=== PATIENT | male | born 2000 | race Caucasian/White ===

== ENCOUNTER → 2021-02-27 17:25 | Outpatient (CLI) | payer BC, SELFPAY ==
--- NOTE | ~2021-02-27 | XR_ITS ---
XR lumbar spine 2-3V 02/27/2021 18:58 Indication: Back pain Procedure: 3 views lumbar spine Comparison: 02/10/2015 Findings: There are 6 lumbar type vertebra. There is mild disc narrowing at the 3 lowest disc levels. No acute fracture or traumatic malalignment. No evidence for spondylolisthesis. There is mild lower lumbar facet hypertrophy. Sacral foramen are symmetric. Impression: 1: Mild lumbar spondylosis. Reviewed, dictated and finalized at location A. S DRIVER Impression: 1: Mild lumbar spondylosis.
--- NOTE | ~2021-02-27 | XR_ITS ---
XR cervical spine 4-5V INDICATION: Neck pain TECHNIQUE: 4 views of the cervical spine. FINDINGS: No prior studies for comparison. The cervical spine is visualized to the cervicothoracic junction. There is no prevertebral soft tiss ue swelling, listhesis, or loss of vertebral body height. Intervertebral disc spaces are normal. Th e osseous central canal is patent. No displaced cervical spine fractures are identified. IMPRESSION: 1. No acute osseous abnormality of the cervical spine. Reviewed, dictated and finalized at location A. AIR CONDITIONING MECH[employer]IC
== END ==
PROVIDERS: PCP Physician Assistant; Visit Provider Physician Assistant
DX: M47.816 Spondylosis without myelopathy or radiculopathy, lumbar region (principal); M54.2 Cervicalgia
CPT/HCPCS: 72050; 72100

== ENCOUNTER 2022-10-06 12:23 | Emergency (ER) | payer BC, SELFPAY ==
[2022-10-06 12:45] VITALS: BP 134/75; PULSE 123; RESP 16; TEMP 36.3; O2SAT 100
--- NOTE | 2022-10-06 13:25 | ED.EYEPROB ---
HPI - Eye Problem General Chief complaint: Eye Problems Stated complaint: right eye fb Time Seen by Provider: 10/06/22 12:48 History of Present Illness HPI Narrative: 21-year-old male presented to the emergency department for evaluation of a foreign body in the right eye. Patient states he was grinding with metal even though he was wearing eye protection he suspects he got something in his eye. Patient states he has had some tearing and a foreign body sensation of the right eye but denies any change in vision. Patient does not wear contacts. Related Data Allergies Allergy/AdvReac Type Severity Reaction Status Date / Time No Known Drug Allergies Allergy Unknown Diarrhea Verified 10/06/22 12:53 Review of Systems Review of Systems: All systems reviewed & are unremarkable except as noted in HPI and below PMFSH Past Medical History Medical History (Updated 10/06/22 @ 13:32 by Jae Lopez MD) Asthma Attention Deficit Hyperactivity Disorder (ADHD) Surgical History Surgical History (Updated 08/20/22 @ 10:36 by DALILA Vance) History of hernia repair 2010 Family History Family History (Updated 08/20/22 @ 10:34 by Gracie Ricketts MA) Father No problems noted. Mother No problems noted. Social History Social History (Updated 08/20/22 @ 10:36 by Gracie Ricketts MA) Smoking status: Never smoker Alcohol intake: current Drinks per week: 4 Substance use: never Substance use type: does not use Lack of Transportation: No Lack of Food: Never True Current Housing: I Have Housing Concerned About Future Housing: No Difficulty Paying Gas/Electric Bills: No Difficulty Paying for Meds: No Currently Unemployed: No Education: Trade/Vocational Certificate Difficulty w/ Childcare or Family Care: No Living arrangements: with family Occupation/Education: occupation Gender identity (if verbalized by the patient): Male Sexual Orientation (if Verbalized by the Patient): Straight or Heterosexual Exam Narrative: APPEARANCE: Well appearing, no pain, no distress, well-nourished. HEAD: normocephalic, atraumatic. EYES: Foreign body at the 7:00 area of the right cornea. Metallic foreign body with rust ring NOSE: Normal no drainage Course Course Emergency Course: 21-year-old male presented ED for evaluation of a metallic foreign body in the right eye. Metallic foreign body was removed. Patient does have a residual rust ring. Patient was started on erythromycin ointment in the ED. Patient was also encouraged of close follow-up with ophthalmology and will be provided follow-up with [facility]. Patient was updated on the treatment plan and importance of follow-up. All questions and concerns were addressed. Patient declined a tetanus update. Vital Signs Vital signs: Vital Signs Temperature 97.4 F L 10/06/22 12:45 Pulse Rate 123 H 10/06/22 12:45 Respiratory Rate 16 10/06/22 12:45 Blood Pressure 134/75 10/06/22 12:45 Pulse Oximetry 100 10/06/22 12:45 Oxygen Delivery Room Air 10/06/22 12:45 Temperature 97.4 F L 10/06/22 12:45 Pulse Rate 123 H 10/06/22 12:45 Respiratory Rate 16 10/06/22 12:45 Blood Pressure 134/75 10/06/22 12:45 Pulse Oximetry 100 10/06/22 12:45 Oxygen Delivery Room Air 10/06/22 12:45 Procedures FB Removal Eye Foreign Body #1: Time Out performed: Yes Location: eye (R) Topical anesthetic used: tetracaine Foreign body: metal Evidence of corneal penetration: Yes Technique: cotton tip swab and needle Procedure performed under: direct visualization with magnification and slit-lamp Post-procedure medication: ophthalmic antibiotic and topical anesthetic Patient tolerated procedure: well Complications: residual rust ring and corneal penetration Foreign Body Removal Narrative: Metallic foreign body was displaced initially with an 18-gauge n
[2022-10-06] MEDS: ERYTHROMYCIN OPHTH OINTMENT 1 GM TUBE 1 APPLIC RIGHT EYE (13:38)
== END 2022-10-06 13:42 | disposition home or self-care (01) ==
PROVIDERS: Emergency Provider Emergency Medicine; PCP Family Medicine
DX: T15.01XA Foreign body in cornea, right eye, initial encounter (principal); W26.9XXA Contact with unspecified sharp object(s), initial encounter
CPT/HCPCS: 65220; 99283; A9270

== ENCOUNTER 2023-07-09 15:37 | Outpatient (CLI) | payer BC, SELFPAY ==
--- NOTE | ~2023-07-09 | XR_ITS ---
Lumbosacral Spine: AP, oblique, and lateral views Clinical History: Pain Findings: The normal lordotic curve is maintained. The vertebral bodies and posterior elements are i ntact. There is mild degenerative disc narrowing at L5-S1. There is mild facet arthropathy at L5-S1 T he sacroiliac joints are normally outlined. Impression: Mild degenerative change, as above. Reviewed, dictated and finalized at location . Impression: Mild degenerative change, as above.
--- NOTE | ~2023-07-09 | XR_ITS ---
Thoracic spine: Clinical Indication: Back pain AP and lateral views were performed. No fracture is seen. There is normal alignment of the vertebrae. The intervertebral disc spaces appe ar normal. Paravertebral soft tissues appear normal. Impression: No significant abnormalities noted. Reviewed, dictated and finalized at [facility]. Impression: No significant abnormalities noted.
== END 2023-07-09 15:38 | disposition home or self-care (01) ==
PROVIDERS: PCP Family Medicine; Visit Provider Physician Assistant
DX: M54.6 Pain in thoracic spine (principal); M54.50 Low back pain, unspecified
CPT/HCPCS: 72072; 72110

== ENCOUNTER 2024-07-02 14:28 | Outpatient (CLI) | payer BC, SELFPAY ==
--- NOTE | 2024-07-02 | ECG_ITS ---
Test Date: 2024-07-02 16:08:52 Measurements Intervals Brutus Rate: 72 P: 86 ME: 141 QRS: 87 QRSD: 97 T: 73 QT: 355 QTc: 391 Interpretive Statements SINUS ARRHYTHMIA RIGHT VENTRICULAR CONDUCTION DELAY Electronically Signed On 07-04-2024 13:51:35 CDT by Mauricio Acosta D.O
--- NOTE | 2024-07-02 | ECHO_ITS ---
Patient Info Name: Joshua Jauregui Age: 23 years : 2000 Gender: Male Ht: 71 in Wt: 155 lbs BSA: 1.87 m2 HR: 82 bpm BP: 132 / 79 mmHg Heart Rhythm: Sinus Rhythm Technical Quality: Fair Exam Date: 07/02/2024 3:26 PM Exam Location: Echo Lab Patient Status: Outpatient Admit Date: 07/02/2024 Staff Ordering Physician: ChandrikaSally PA-C Senior Underwriter: Peyton Castellanos RDCS Attending Provider: ChandrikaSally PA-C Exam Type: CA echo doppler color flow Study Info Indications - CHEST PAIN Complete two-dimensional, color flow and Doppler transthoracic echocardiogram is performed. Summary 1. Complete two-dimensional, color flow and Doppler transthoracic echocardiogram is performed. 2. Left ventricular chamber dimension is normal. 3. Left ventricular systolic function is normal, estimated at 60-65%. 4. The left ventricular diastolic function is normal. 5. E/e' 6 is not elevated. 6. There is trace mitral valve regurgitation. 7. No pulmonary hypertension, estimated pulmonary arterial systolic pressure is 19 mmHg. Left Ventricle E/e' 6 is not elevated. Left ventricular chamber dimension is normal. Left ventricular systolic function is normal, estimated at 60-65%. The left ventricular diastolic function is normal. Right Ventricle Right ventricular chamber dimension is normal. Right ventricular systolic function is normal. Left Atria Left atrial chamber dimension is normal. Right Atria Right atrial chamber dimension is normal. Aortic Valve The aortic valve is trileaflet. There is no aortic valve stenosis. There is no aortic valve regurgitation. Pulmonic Valve There is no pulmonic regurgitation. Mitral Valve There is no mitral valve stenosis. There is trace mitral valve regurgitation. Tricuspid Valve There is no tricuspid valve regurgitation. No pulmonary hypertension, estimated pulmonary arterial systolic pressure is 19 mmHg. Pericardium/Pleural There is no pericardial effusion. Inferior Vena Cava Normal inferior vena cava with >50% collapse upon inspiration consistent with normal right atrial pressure, 5 mmHg. Aorta The aortic root size at the sinus of Valsalva is normal. Left Ventricular Outflow Tract Name Value Normal LVOT 2D LVOT Diameter 2.0 cm LVOT Doppler LVOT Peak Gradient 3 mmHg LVOT Mean Gradient 2 mmHg LVOT VTI 19 cm LVOT VTI/AV VTI Ratio 1.0 LVOT Stroke Volume 61 ml LVOT CO 2.9 l/min LVOT CI 1.5 l/min/m2 Pulmonic Valve Name Value Normal RVOT Doppler RVOT Peak Gradient 2 mmHg PV Doppler PV Peak Gradient 4 mmHg Mitral Valve Name Value Normal MV Doppler MV Decel Hooker 292 cm/s2 MV PHT 80 ms MV Area (PHT) 2.8 cm2 4.0-5.0 MV Diastolic Function MV E Peak Velocity 80 cm/s MV A Peak Velocity 47 cm/s MV E/A 1.7 MV Decel Time 275 ms MV Annular TDI MV E/e' (Septal) 8.1 <=8.0 MV E/e' (Lateral) 5.2 <=8.0 MV E/e' (Average) 6.7 Tricuspid Valve Name Value Normal TV Regurgitation Doppler TR Peak Velocity 188 cm/s TR Peak Gradient 8 mmHg Estimated PAP/RSVP RA Pressure 5 mmHg <=5 PA Systolic Pressure 19 mmHg <36 RV Systolic Pressure 19 mmHg <36 Aortic Valve Name Value Normal AV Doppler AV Peak Velocity 95 cm/s AV Peak Gradient 4 mmHg AV Mean Gradient 2 mmHg AV VTI 19 cm AV Area (Cont Eq VTI) 3.2 cm2 >=3.0 AV Area (Cont Eq Ozzy) 2.9 cm2 AV Regurgitation 2D LVOT Area 3.2 cm2 Ventricles Name Value Normal LV Dimensions 2D/MM IVS Diastolic Thickness (2D) 0.9 cm 0.6-1.0 LVID Diastole (2D) 4.4 cm 4.2-5.8 LVIW Diastolic Thickness (2D) 0.9 cm 0.6-1.0 LVID Systole (2D) 2.8 cm 2.5-4.0 LVOT Diameter 2.0 cm LV Mass (2D Cubed) 124.28 g 88.00-224.00 LV Mass Index (2D Cubed) 66 g/m2 49-115 Relative Wall Thickness (2D) 0.41 LV Fractional Shortening/Ejection Fraction 2D/MM LV Fractional Shortening (2D) 30 % 25-43 LV EF (2D Teicholz) 58 % 52-72 LV Diastolic Volume (4C MOD) 133 ml LV EF (4C MOD) 67 % LV Diastolic Volume (2C MOD) 151 ml LV EF (2C MOD) 69 % LV Diastolic Volume (BP MOD) 148 ml 62-150 LV Diastolic Volume Index (BP MOD) 79 ml/m2 34-74 LV Systolic Volume (BP MOD) 46 ml 21-61 LV Systolic Volume Index (BP MOD) 24 ml/m2 11-31 LV EF (BP MOD) 69 % 52-72 LV Diastolic Length (4C) 9.6 cm LV Systolic Length (4C) 7.6 cm LV Stroke Volume (4C MOD) 89 ml Atria Name Value Normal LA Dimensions LA Volume (4C A-L) 45 ml LA Volume (BP A-L) 33 ml RA Dimensions RA Area (4C) 13.6 cm2 <=18.0 Report Signatures
--- NOTE | ~2024-07-02 | XR_ITS ---
CHEST RADIOGRAPH, PA AND LATERAL CLINICAL HISTORY: Atypical chest pain . COMPARISON: 01/15/2013. TECHNIQUE: PA and lateral views of the chest. FINDINGS The cardiomediastinal silhouette is unremarkable. The lungs are clear. Visualized osseous structures and soft tissues are unremarkable. IMPRESSION: No focal infiltrate or effusion. Reviewed, dictated and finalized at location A.
--- OUTSIDE RECORDS SUMMARY | 2024-07-02 14:37 | XMS_ITS | Patient Health Summary ---
Author Organization [facility] [employer] Address [address] [place] [address] Care Team Providers Care Borderer Name Role Phone Unavailable Primary Care Provider Unavailabl e Note from [facility] [employer] [facility],non-owned Affiliates and Associated Physician Practices is amultiple site organization consisting of ambulatory clinics and hospital sitesin [place] and [place]. This disclosure is being madepursuant to the Care Everywhere program and may not contain all information available regarding this patient. Last updated 18.[facility] [employer] Allergies No known active allergies Medications * Be aware that medications may not be up to date on this document. Alwaysverify current medications with the patient. * albuterol HFA (PROVENTIL;VENTOLIN;PROAIR) 108 (90 BASE) MCG/ACT inhaler Inhale 2 Puffs by mouth every 6 hours as needed. * Budesonide (PULMICORT IN) Inhale 2 Puffs by mouth once daily. * ibuprofen (MOTRIN) 100 MG chew tablet(Started 07/19/2011) Take 1 Tab by mouth every 6 hours as needed for Pain. Social History Tobacco Use Types Packs/Day Years Used Date Smoking Tobacco: Never Sex and Gender Information Value Date Recorded Sex Assigned at Not on file Gender Identity Not on file Sexual Orientation Not on file Last Filed Vital Signs Vital Sign Reading Time Taken Comments Blood Pressure 124/70 06/17/2013 1:29 PM [employer] Pulse 114 06/17/2013 1:29 PM [employer] Temperature 36.6 C (97.8 F) 06/17/2013 1:29 PM [employer] Respiratory Rate 20 06/17/2013 1:29 PM [employer] Oxygen Saturation 99% 06/17/2013 1:29 PM [employer] Inhaled Oxygen Concentration - - Weight 44.8 kg (98 lb 12.3 oz) 06/17/2013 1:29 P M [employer] Height 156.8 cm (5' 1.73 ) 06/17/2013 1:29 PM CS T Body Mass Index 18.22 06/17/2013 1:29 PM [employer] Procedures * LAB RESULTS ORDER(Performed 06/19/2013) * FACTOR XI ASSAY(Performed 06/17/2013) Performed for Bruising * T4 FREE(Performed 06/17/2013) Performed for Malaise and fatigue * TSH(Performed 06/17/2013) Performed for Malaise and fatigue * MIKE-FREGOSO VIRUS ANTIBODY PANEL(Performed 06/17/2013) Performed for Malaise and fatigue * VON WILLEBRAND ANTIGEN(Performed 06/17/2013) Performed for Bruising * RISTOCETIN COFACTOR (VWF)(Performed 06/17/2013) Performed for Bruising * FACTOR VIII ASSAY(Performed 06/17/2013) Performed for Bruising * PT PTT PANEL(Performed 06/17/2013) Performed for Bruising * CBC W AUTO DIFFERENTIAL(Performed 06/17/2013) Performed for Bruising * PATHOLOGY/CYTOLOGY REPORT ORDER(Performed 07/23/2011) * GROSS + MICRO EXAM(Performed 07/19/2011) Results * LAB RESULTS ORDER (06/19/2013 6:37 AM [employer]) Narrative 06/19/2013 6:37 AM [employer] Ordered by an unspecified provider. Transcriptions Document, Scanned - 06/19/2013 6:37 AM CST Scanned Document LAB - THERAPEUTIC DR FRANCIS MONITORING ORDERABLES * MIKE-BAR VIRUS PANEL (06/17/2013 2:31 PM [employer]) Mike-Fregoso Virus Antibody IgG Early Antigen <5.0 0.0 - 10.9 U/mL 06/18/2013 9:03 PM [employer]ER [facility] [employer] Comment: INTERPRETIVE INFORMATION: Mike-Fregoso Virus Antibody to Early D Antigen (EA-D), IgG 8.9 U/mL or less.......Not Detected 9.0-10.9 U/mL..........Indeterminate - Repeat testing in 10-14 days may be helpful. 11.0 U/mL or greater...Detected Interpretive information regarding serologic features of EBV-associated diseases is available at [email or web address]. Mike-Fregoso Virus Antibody IgG Viral Capsid Antigen <10.0 0.0 - 21.9 U/mL 06/18/2013 9:03 PM [employer] [facility] Comment: INTERPRETIVE INFORMATION: Mike-Fregoso Virus Antibody to Viral Capsid Antigen, IgG 17.9 U/mL or less......Not Detected 18.0-21.9 U/mL.........Indeterminate - Repeat testing in 10-14 days may be helpful. 22.0 U/mL or greater...Detected Interpretive information regarding serologic features of EBV-associated diseases is available at [email or web address]. Mike-Fregoso Virus Antibody IgM Viral Capsid Antigen <10.0 0.0 - 43.9 U/mL 06/18/2013 9:03 PM [employer] [facility] [employer] Comment: INTERPRETIVE INFORMATION: Mike-Fregoso Virus Antibody to Viral Capsid Antigen, IgM 35.9 U/mL or less......Not Detected 36.0-43.9 U/mL.........Indeterminate - Repeat testing in 10-14 days may be helpful. 44.0 U/mL or greater...Detected Interpretive information regarding serologic features of EBV-associated diseases is available at [email or web address]. Mike-Fregoso Virus Antibody IgG Nuclear Antigen <3.0 0.0 - 21.9 U/mL 06/18/2013 9:03 PM [employer] [facility] Comment: INTERPRETIVE INFORMATION: Mike-Fregoso Virus Antibody to Nuclear Antigen, IgG 17.9 U/mL or less......Not Detected 18.0-21.9 U/mL.........Indeterminate - Repeat testing in 10-14 days may be helpful. 22.0 U/mL or greater...Detected Interpretive information regarding serologic features of EBV-associated diseases is available at [email or web address]. Blood specimen (specimen) BLOOD SPECIMEN / Unknown Lab Venipuncture / Unknown 06/17/2013 2:31 PM [employer] 06/17/2013 3:01 PM [employer] Peter Torres MD LAB - CHEMISTRY ORDE RABLES Performing Organization Address [facility] de Phone Number [facility] [address] [place] [address] * FACTOR XI ASSAY (06/17/2013 2:31 PM [employer]ER) Factor XI Activity 86 68 - 138 % 06/21/2013 5:59 PM [employer] [facility] [employer] Comment: INTERPRETIVE INFORMATION: Factor XI, Activity Access complete set of age- and/or gender-specific reference intervals for this test in the [facility] Test Directory ([employer]). Blood specimen (specimen) BLOOD SPECIMEN / Unknown Lab Venipuncture / Unknown 06/17/2013 2:31 PM [employer] 06/17/2013 3:01 PM [employer] Peter Torres MD LAB - COAGULATION OR DERABLES Performing Organization Address [facility] de Phone Number [facility] [address] [place] [address] * FACTOR VIII VW ANTIGEN (06/17/2013 2:31 PM [employer] TE[employer]ER) Pathologist [facility] [place] von Willebrand Factor Antigen 152 60 - 189 % 06/21/2013 10:15 AM [employer] TE[employer]ER [employer] Comment: REFERENCE INTERVAL: von Willebrand Factor, Antigen Access complete set of age- and/or gender-specific reference intervals for this test in the [facility] ([employer]). Blood specimen (specimen) BLOOD SPECIMEN / Unknown Lab Venipuncture / Unknown 06/17/2013 2:31 PM [employer]ER 06/17/2013 3:01 PM [employer] Peter Torres MD LAB - COAGULATION OR DERABLES Performing Organization Address [facility] de Phone Number [address] [address] * FACTOR VIII RISTOCETIN COFACTOR (06/17/2013 2:31 PM [employer] TE[employer]ER) Pathologist [facility] [place] von Willebrand Factor RCF 117 50 - 184 % 06/21/2013 10:15 AM [employer] TE[employer] Comment: REFERENCE INTERVAL: von Willebrand Factor, Activity (RCF) Access complete set of age- and/or gender-specific reference intervals for this test in the [facility] ([employer]). Blood specimen (specimen) BLOOD SPECIMEN / Unknown Lab Venipuncture / Unknown 06/17/2013 2:31 PM [employer] 06/17/2013 6:05 PM [employer]ER Peter Torres MD LAB - COAGULATION OR DERABLES [employer] [address] [place] [address] * PT PTT PANEL (06/17/2013 2:31 PM [employer] TE[employer]ER) Pathologist [facility] PT 13.3 12.2 - 14.5 sec 06/17/2013 4:02 PM [facility] INR 1.02 0.8 - 1.2 06/17/2013 4:02 PM [facility] PTT 31.5 23.0 - 36.0 sec 06/17/2013 4:02 PM [employer]ER [facility] Blood BLOOD SPECIMEN / Unknown Lab Venipuncture / Unknown 06/17/2013 2:31 PM [employer]ER 06/17/2013 3:02 PM [employer] Peter Torres MD LAB - COAGULATION OR DERABLES Performing Organization Address City/[facility]/ZIP Co de Phone Number [facility] [address] [place] [address] * FACTOR VIII ASSAY (06/17/2013 2:31 PM [employer]ER) [facility] Factor VIII Activity 125 60 - 140 % NHP 06/22/2013 12:23 PM [employer] TE[employer]ER [facility] Blood BLOOD SPECIMEN / Unknown Lab Venipuncture / Unknown 06/17/2013 2:31 PM [employer]ER 06/17/2013 3:02 PM [employer] Peter Torres MD LAB - COAGULATION OR DERABLES Performing Organization Address City/[facility] Co de Phone Number [facility] [address] [place] [address] * (ABNORMAL) CBC W AUTO DIFFERENTIAL (06/17/2013 2:31 PM [employer] TE[employer]ER) [facility] WBC 5.4 4.5 - 14.5 x10^9/L 06/17/2013 3:14 PM [employer]ER [facility] RBC 5.05 4.00 - 5.20 x10^12/L 06/17/2013 3:14 PM [facility] Hemoglobin 13.9 11.5 - 15.5 gm/dL 06/17/2013 3:14 PM [facility] Hematocrit 39.9 35.0 - 45.0 % 06/17/2013 3:14 PM [facility] MCV 79.0 77.0 - 95.0 fl 06/17/2013 3:14 PM [facility] MCH 27.5 25.0 - 33.0 pg 06/17/2013 3:14 PM [facility] MCHC 34.8 gm/dL 06/17/2013 3:14 PM [facility] Platelet Count 330 100 - 400 x10^9/L 06/17/2013 3:14 PM [facility] RDW-CV 12.0 11.5 - 14.0 % 06/17/2013 3:14 PM [facility] MPV 9.7(H) 6.0 - 9.5 fl 06/17/2013 3:14 PM [facility] Neutrophils % 59.4 24.0 - 66.0 % 06/17/2013 3:14 PM [facility] Lymphocytes % 27.0 22.0 - 61.0 % 06/17/2013 3:14 PM [facility] Monocytes % 8.2 3.0 - 15.0 % 06/17/2013 3:14 PM [facility] Eosinophils % 4.8 0.0 - 10.0 % 06/17/2013 3:14 PM [facility] Basophils % 0.6 % 06/17/2013 3:14 PM [facility] Neutrophil Absolute 3.20 x10^9/L 06/17/2013 3:14 PM [facility] Lymphocytes Absolute 1.45 x10^9/L 06/17/2013 3:14 PM [facility] Monocytes Absolute 0.44 x10^9/L 06/17/2013 3:14 PM [facility] Eosinophils Absolute 0.26 x10^9/L 06/17/2013 3:14 PM [facility] Basophils Absolute 0.03 x10^9/L 06/17/2013 3:14 PM [facility] Blood BLOOD SPECIMEN / Unknown Lab Venipuncture / Unknown 06/17/2013 2:31 PM [employer] 06/17/2013 3:02 PM [employer] Peter Torres MD LAB - HEMATOLOGY ALYCE ROMERO Performing Organization Address [facility] Co de Phone Number [facility] [address] [place] [address] * TSH (06/17/2013 2:31 PM [employer] TE[employer]ER) Pathologist [facility] TSH 0.98 0.35 - 4.95 uIU/mL 06/17/2013 4:25 PM [employer] TE[employer]ER [facility] Blood BLOOD SPECIMEN / Unknown Lab Venipuncture / Unknown 06/17/2013 2:31 PM [employer]ER 06/17/2013 3:02 PM [employer] Peter Torres MD LAB - CHEMISTRY THOM TEAGUE Performing Organization Address [facility] Co de Phone Number [facility] [address] [place] [phone] * T4 FREE (06/17/2013 2:31 PM [employer] TE[employer]ER) Pathologist [facility] T4 Free 1.14 0.70 - 1.48 ng/dL 06/17/2013 4:25 PM [employer] TE[employer]ER [facility] Blood BLOOD SPECIMEN / Unknown Lab Venipuncture / Unknown 06/17/2013 2:31 PM [employer] TE[employer]ER 06/17/2013 3:02 PM [employer] Peter Torres MD LAB - CHEMISTRY THOM TEAGUE Performing Organization Address [facility] Co de Phone Number [facility] [address] [place] [phone] * PATHOLOGY/CYTOLOGY REPORT ORDER (07/23/2011 7:15 AM CDT) Narrative Transcriptions Document, Scanned - 07/23/2011 7:15 AM CDT Scanned Document LAB - PATHOLOGY/CYTO LOGY ORDERABLES * GROSS + MICRO EXAM (07/19/2011 8:24 AM CDT) Pathologist [facility] Clinical History [facility] Comment: The patient is a 10-year-old boy who underwent left inguinal hernia repair. Gross Description [facility] Comment: Submitted fresh in one container for gross and microscopic examination labeled with the patient's name, Joshua Jauregui, and hernia sac is a 2.2 x 0.2 x 0.2 cm membranous portion of glistening pink-chance soft tissue submitted in toto as A1. (CT/mal) Microscopic Examination [facility] Comment: 1 H+E. A section shows fibroadipose connective tissue lined by mesothelium. (DSB) Diagnosis [facility] Comment: DIAGNOSIS: SOFT TISSUE, HERNIA SAC, LEFT INGUINAL, EXCISION: - HERNIA SAC. Director [employer] JOSIE MOBLEY, [facility] Resident in Pathology Mark Morris [facility] Pathologist Carolyne Hoffman M.D. [facility] Electronically Signed By CAROLYNE HOFFMAN M.D. [facility] HERNIA SAC / Unknown 07/19/2011 8:24 AM CDT 07/19/2011 9:34 AM CDT Ada Gallardo MD LAB - PATHOLOGY/CYT OLOGY ORDERABLES [facility] [address] [place] [address]
--- OUTSIDE RECORDS SUMMARY | 2024-07-02 14:37 | XMS_ITS | Data Portability ---
Author Organization [facility] [place] B[place] Address [address] [place] [address] Care Team Providers Care Clerical Coordinator Name Role Phone DIALLO BOUCHER Primary Care Provider Unavailab le Assessment Encounter Date Assessment Date Assessment LastModified by Organization Details LastModified Time 03/22/2024 03/22/2024 patient has had blood work done this year; thyroid and testosterone completed and all normal. [email or web address] Not available 03/22/2024 12:03:04 Plan of Treatment Reminders Order Date Submit Date Provider Last Modified By Organization Details Last Modified Time Details Appointments None recorded. Lab None recorded. Referral None recorded. Procedures None recorded. Surgeries None recorded. Imaging US, echocardio gram, transthora cic, complete, w/ color flow 2024 025 [facility] (Cardiology & Emg), [address] [place] [address], [phone], 10:03:46 XR, chest, 2 view 2024 025 [facility] (Imaging), [address] [place] [address], [phone], 10:03:34 electrocar diogram, routine ECG, 12 leads min 2024 025 [facility] (Cardiology & Emg), [address] [place] [address], [phone], 10:07:25 Medication Orders sertraline 50 mg tablet 2024 025 [facility]/Pharmacy #[id number], [address] [place], [address], 5 10:40:15 sertraline 25 mg tablet 2023 024 [email or web address] [facility]/Pharmacy #[id number], [address] [place], [address], 5 10:21:35 Patient TargetsNo targets recorded. Patient InstructionsNo instructions recorded. Reason for Referral None Reported. Problems Name Problem SNOMED Code Status Onset Date Resolution Date Notes Provider Name and Address Organization Details Recorded Time Body mass index 20-24 - normal 536883556 Active 2023 Simeon Shaffer MA [facility], [place] - [facility] 4 11:39:35 Chronic insomnia 886152400 Active 2023 CONNIE Payne Attn: Matthieu bautista,[address] [place], [address], [facility] 4 12:00:08 Generalized anxiety disorder 40951342 Active 2023 CONNIE Payne Attn: Matthieu g,[address] [place], [place], [address] [place] [address], [place] - [facility] 4 12:03:52 Positive screening for depression on PHQ-9 (Patient Health Questionnai re 9) 7818574278716 00 Active 2023 CONNIE Payne Attn: Matthieu g,[address] [place], [address], [place] [facility] 4 13:48:26 Long-term drug therapy Active 2024 CONNIE Payne Attn: Matthieu g,[address] [place], [address], [place] [facility] 5 10:27:25 Problem Notes None recorded. Medical Equipment None Reported. Allergies No known drug allergies Medications Name Sig Start Date Stop Date Status Note LastModified by Organization Details LastModified Time sertraline 25 mg tablet Take 1 tablet every day by oral route in the evening. 06/15 completed Not Available Not Available Not Available zolpidem 5 mg tablet 5 MG ORALLY EVERY DAY AT BEDTIME MAY REPEAT ONCE IF NO RESPONSE IN 30-60 MINUTES 03/22 completed Not Available Not Available Not Available sertraline 50 mg tablet TAKE 1 TABLET BY MOUTH EVERY DAY active Not Available Not Available No t Available Vitals Date Recorded Body weight Respiratory rate Body mass index (BMI) Body height Oxygen saturation Oxygen saturation in Arterial blood by Pulse oximetry Heart rate Systolic blood pressure Diastolic blood pressure Provider Name and Address Organization Details Last Updated DateTime 4 92957.3 g 18 /min 20.1 kg/m2 180.34 cm 98 % 98 % 87 /min 122 mm[Hg] 82 mm[Hg] Simeon Shaffer MA [facility] 4 11:40:44 Date Recorded Systolic blood pressure Diastolic blood pressure Provider Name and Address Organization Details Last Updated DateTime 03/22/2024 124 mm[Hg] 80 mm[Hg] CONNIE Payne Attn: Accounting[address] [place], [address], [facility] 03/22/2024 12:12:13 Date Recorded Body height Body mass index (BMI) Body weight Respiratory rate Oxygen saturation Oxygen saturation in Arterial blood by Pulse oximetry Heart rate Systolic blood pressure Diastolic blood pressure Provider Name and Address Organization Details Last Updated DateTime 5 180.34 cm 21.6 kg/m2 66156.8 2 g 18 /min 99 % 99 % 82 /min 128 mm[Hg] 82 mm[Hg] Simeon Shaffer MA [facility] 5 10:02:02 Date Recorded Systolic blood pressure Diastolic blood pressure Provider Name and Address Organization Details Last Updated DateTime 06/15/2024 110 mm[Hg] 80 mm[Hg] CONNIE Payne Attn: Accounting[address] [place], [address], [facility] 06/15/2024 10:39:54 Social History Question Answer Notes LastModified by Organizat ion Details LastModified Time Tobacco Smoking Status Never Smoker Simeon Shaffer MA [facility] 03/22/2024 11:38:46 Do You Have An Advance Directive? No Information not available 03/22/2024 What Is Your Level Of Alcohol Consumption? Occasional Information not available 03/22/2024 Are You Blind Or Do You Have Difficulty Seeing? No Information not available 03/22/2024 What Is Your Level Of Caffeine Consumption? Moderate Information not available 03/22/2024 In The 14 Days Before Symptom Onset, Have You Had Close Contact With A Laboratory-confir med COVID-19 While That Case Was Ill? No Information not available 03/22/2024 In The 14 Days Before Symptom Onset, Have You Had Close Contact With A Person Who Is Under Investigation For COVID-19 While That Person Was Ill? No Information not available 03/22/2024 Have You Been To An Area Known To Be High Risk For COVID-19? No Information not available 03/22/2024 Are You Currently Employed? Yes Information not available 03/22/2024 Are You Deaf Or Do You Have Serious Difficulty Hearing? No Information not available 03/22/2024 What Type Of Diet Are You Following? REGULAR Information not available 03/22/2024 Are There Any Guns Present In Your Home? No Information not available 03/22/2024 What Was The Date Of Your Most Recent Tobacco Screening? 06/15/2024 Information not available 06/15/2024 Do You Use Your Seat Belt Or Car Seat Routinely? Yes Information not available 03/22/2024 Do You Have Smoke And Carbon Monoxide Detectors In Your Home? Yes Information not available 03/22/2024 Do You Use Any Illicit Or Recreational Drugs? Yes Marijuna Information not available 03/22/2024 Do You Use Sunscreen Routinely? No Information not available 03/22/2024 Has Tobacco Cessation Counseling Been Provided? No Information not available 03/22/2024 Do You Or Have You Ever Used Any Other Forms Of Tobacco Or Nicotine? No Information not available 03/22/2024 Sex: Male Functional Status Question Answer Note LastModified by Organizat ion Details LastModified Time Are you able to care for yourself? Yes Information not available 03/22/2024 What is your exercise level? Occasional Information not available 03/22/2024 Mental Status None recorded. Family History Nothing Reported. Medical History Condition Response Coronary Artery Disease N Other N High Blood Pressure N Atrial Fibrillation N Kidney or Bladder Problems N Thyroid Problems N GI Problems N Depression N COPD N Blood Clots N Have you had a mammogram in the last yea r? N Skin Problems N Anemia N Heart Attack (SC) N Anxiety Disorder N Diabetes N Muscle, Joint, or Bone Problems N Seizures/Epilepsy N Have you had a colonoscopy in the last 1 0 years? N Acid Reflux (GERD) N Cancer N Stroke N Asthma Y Allergies N Have you had a PSA blood test in the las t year? N High Cholesterol N Hepatitis N Liver Disease N Headaches N Heart Failure N Osteoporosis N Immunizations Vaccine Type Date Status Note Provider Nam e and Address Organization Details Recorded Time Influenza, split virus, quadrivalent, preservative 8 completed Simeon Shaffer [place], [place] [facility] 03/22/2024 11:39:24 meningococcal B, OMV 8 completed Simeon [place] [facility] 03/22/2024 11:39:25 meningococcal B, OMV 8 completed Simeon [place] [facility] 03/22/2024 11:39:25 HPV9 5 completed Simeon [place] [facility] 03/22/2024 11:39:25 IPV 3 completed Simeon [place] [facility] 03/22/2024 11:39:25 IPV 6 completed Sime[place] [facility] 03/22/2024 11:39:25 IPV 1 completed Simeon [place] [facility] 03/22/2024 11:39:25 IPV 1 magdiel Shaff[place] [facility] 03/22/2024 11:39:25 MMR 6 completed [place] [facility] 03/22/2024 11:39:25 MMR 2 completed [place] [facility] 03/22/2024 11:39:25 COVID-19, mRNA, LNP-S, PF, 30 mcg/0.3 mL dose 1 completed [place] [facility] 03/22/2024 11:39:25 COVID-19, mRNA, LNP-S, PF, 30 mcg/0.3 mL dose 1 completed [place]ime[place] [facility] 03/22/2024 11:39:25 COVID-19, mRNA, LNP-S, PF, 30 mcg/0.3 mL dose 1 completed EMEKA Bills, [place] [facility] 03/22/2024 11:39:25 pneumococcal conjugate PCV 7 2 completed Simeon [place] [facility] 03/22/2024 11:39:25 pneumococcal conjugate PCV 7 1 [place] EMEKA Bills[place] [facility] 03/22/2024 11:39:25 pneumococcal conjugate PCV 7 2 completed Simeon [place] [facility] 03/22/2024 11:39:25 pneumococcal conjugate PCV 7 1 completed [place] [facility] 03/22/2024 11:39:25 Tdap 2 completed [place] [facility] 03/22/2024 11:39:25 varicella 2 [place] EMEKA Bills[place] [facility] 03/22/2024 11:39:25 varicella 2 [place] EMEKA [place] [facility] 03/22/2024 11:39:25 Influenza, split virus, trivalent, preservative 4 [place] EMEKA [place] [facility] 03/22/2024 11:39:25 Influenza, split virus, trivalent, preservative 2 completed [place]ime[place] [facility] 03/22/2024 11:39:25 HPV, quadrivalent 5 completed [place] [facility] 03/22/2024 11:39:25 HPV, quadrivalent 5 completed [place] [facility] 03/22/2024 11:39:25 Hep B, adolescent or pediatric 2 completed [place] [facility] 03/22/2024 11:39:25 Hep B, adolescent or pediatric 1 completed [place] [facility] 03/22/2024 11:39:25 Hep B, adolescent or pediatric 1 completed [place] [facility] 03/22/2024 11:39:25 Hep A, ped/adol, 2 dose 5 completed [place] [facility] 03/22/2024 11:39:25 Hep A, ped/adol, 2 dose 2 completed [place] [facility] 03/22/2024 11:39:25 Hib (PRP-OMP) 3 completed [place] [facility] 03/22/2024 11:39:25 Hib (PRP-OMP) 2 completed [place] [facility] 03/22/2024 11:39:25 Hib (PRP-OMP) 1 completed [place] [facility] 03/22/2024 11:39:25 Hib (PRP-OMP) 1 completed [place] [facility] 03/22/2024 11:39:25 Meningococcal MCV4O 8 [place] EMEKA [place] [facility] 03/22/2024 11:39:25 meningococcal MCV4P 2 [place] EMEKA [place] [facility] 03/22/2024 11:39:25 DTaP 3 [place] EMEKA [place] [facility] 03/22/2024 11:39:25 DTaP 2 [place] EMEKA [place] [facility] 03/22/2024 11:39:25 DTaP 6 completed [place] [facility] 03/22/2024 11:39:25 DTaP 1 [place] EME[place] [facility] 03/22/2024 11:39:25 DTaP 1 [place] EMEKA Bills[place] [facility] 03/22/2024 11:39:25 Past Encounters Encounter ID Performer Location Encounter Start Date Encounter Closed Date Diagnosis/Indication Diagnosis SNOMED-CT Code Diagnosis ICD10 Code Diagnosis Note [id number] CONNIE Payne [facility], located [facility] [place] [address] [place] [address] 03/22/2024 11:25:47 03/22/2024 13:34:16 Body mass index 20-24 - normal 529833679 Z68.20 BMI is 20.1 Adult [facility] th examination 986703941 Z00.01 New patient exam completed. We will acquire records from his last PCP because she did order labs in the past year. Chronic insomnia 2546048 04 F51.04 We will await to see if low-dose sertraline starts to help with some of his insomnia as there is a suspicion that his insomnia is related to unmanaged anxiety. We will follow-up early April for dose adjustment and for any additional needs to help with his sleep. Generalize d anxiety disorder 79517376 F41.1 Start low-dose sertraline 25 mg each evening. Patient has been set up for the portal and will reach out to the provider with any questions or concerns. Pt to seek ER with any S.I. She will call with any intoleranc e, side effects or lack of efficacy issues. Positive s creening for depression on PHQ-9 (Patient Health Questionnaire 9) 4374077420 36791 Z13.31 Patient scored a 9 on his screening today and low-dose SSRI therapy has been initiated [id number] CONNIE Payne [facility] [address] [place] [address] 06/15/2024 09:49:32 06/15/2024 11:03:01 Body mass index 20-24 - normal 395515552 Z68.20 BMI is 21.6 Generalize d anxiety disorder 83722571 F41.1 Restart sertraline but booster 50 mg daily Atypical chest pain 1025 72138 R07.89 Refer for complete echo with Doppler, chest x-ray and 12 lead EKG. Rule out any underlying mitral valve prolapse or other structural abnormalit y that may be causing paroxysmal brief anterior left-sided chest pain Long-term drug therapy 031617369 Z79.891 Health Concerns Section Related Observation LastModified by Organization Detai ls LastModified Time None Recorded Concern Status LastModified by Organization Details LastModified Time None Recorded Advance Directives Directive N: Payers Encounter Date Sequence Insurance Name Policy Number Policy Flores Covered Member ID Flores Member ID Guarantor Name 03/22/2024 1 [place] [id number] Jauregui [id number] Joshua Jauregui 06/15/2024 1 [place] [id number] Pedro Jauregui [id number] Joshua Jauregui Notes Date Note Type Note Provider Name and Address Organization Details Recorded Time 03/22/2024 text/html Anxiety/Depressi on Reported bypatient.Quality: increased anxiety Severity:denies suicidal ideations; able to maintain relationships; does not interfere with activities of daily living Duration:frequent Onset/Timing:As a child Context:no major life stressors Modifying Factors:social support Associated Symptoms:denies homicidal ideations; no significant weight gain; no significant weight loss; no visual/auditory hallucinations; no delusions; no shortness of breath; mood good; no crying spells; no panic; no isolation; appetite good; energy good; no apathy; maintaining functionality;anxi ety;sleep disturbancesNotes: underlying anxiety: for years, even as younger boy, just never discussed. open to trying a medication option.InsomniaRep orted bypatient.Quality: symptoms worse in the evening Severity:worsening Duration:frequent; years Context:takes 2 hours to fall asleep Modifying Factors:OTC medication DX with ADHD in 2nd grade. feels he has outgrown much of that. meds never helped well either. CONNIE Payne Attn: Accounting[address] [place], [address], [facility] 03/22/2024 13:48:43 06/15/2024 text/html Angina/Chest PainReported bypatient.Location :left chest; midsternal Quality:stabbing Severity:very limiting Duration:lasts seconds Onset/Timing:start ed 5 days ago Context:at rest Alleviating Factors:nothing gives relief Aggravating Factors:nothing makes it worse Associated Symptoms:no dyspnea; no fatigue; no associated palpitations; no associated dizzinessNotes:He isn't sure about trigger. He took tums friday night and it maybe helped. episodes are sporadic. He has the episodes often, 30-40 on friday alone.Anxiety/Depr essionReported bypatient.Quality: increased anxiety Severity:denies suicidal ideations; able to maintain relationships; does not interfere with activities of daily living Duration:frequent Onset/Timing:As a child Context:no major life stressors Modifying Factors:social support Associated Symptoms:denies homicidal ideations; no significant weight gain; no significant weight loss; no visual/auditory hallucinations; no delusions; no shortness of breath; mood good; no crying spells; no panic; no isolation; appetite good; energy good; no apathy; maintaining functionality;anxi ety;sleep disturbancesNotes: underlying anxiety: for years, even as younger boy. he ran out of the sertraline and didn't diamond picker refill. has been out 1 month. CONNIE Payne Attn: Accounting[address] [place], [address], [facility] 06/16/2024 00:14:10
--- OUTSIDE RECORDS SUMMARY | 2024-07-02 14:37 | XMS_ITS | Clinical Summary ---
Author Organization [facility] Address [address] [place] [address] Care Team Providers Care Digital Marketing Lead Name Role Phone Ana Maria Prakash PA-C Primary Care Provider [phone] Allergies No known active allergies Medications No known medications Active Problems Problem Noted Date Diagnosed Date Finger injury, initial encounter 07/23/2021 Family History Medical History Relation Comments No Known Problems Father No Known Problems Mother Relation Status Comments Father Mother Social History Tobacco Use Types Packs/Day Years Used Date Smoking Tobacco: Never Smokeless Tobacco: Never Tobacco Cessation:Counseling Given: No Alcohol Use Standard Drinks/Week Comments Not Currently 0 (1 standard drink = 0.6 oz pur e alcohol) PHQ-2 Answer Date Recorded PHQ-2 Score - If the patient scores above 3, please move on to questions 3-9 0 07/23/2021 Sex and Gender Information Value Date Recorded Sex Assigned at Not on file Legal Sex Male 1:57 PM CDT Gender Identity Not on file Sexual Orientation Not on file Last Filed Vital Signs Vital Sign Reading Time Taken Comments Blood Pressure 110/73 07/23/2021 9:29 AM CDT Pulse 74 07/23/2021 9:29 AM CDT Temperature - - Respiratory Rate - - Oxygen Saturation - - Inhaled Oxygen Concentration - - Weight 71.7 kg (158 lb) 07/23/2021 9:29 AM CDT Height 182.9 cm (6') 07/23/2021 9:29 AM CDT Body Mass Index 21.43 07/23/2021 9:29 AM CDT Plan of Treatment Health Maintenance Due Date Last Done Comments Annual Physical 11/16/2003 Hepatitis C 2018 DTaP, Tdap and Td Vaccines (7 - Td or Tdap) 11/25/2021 11/26/2011, 10/02/2005, 05/19/2002, Additional history exists COVID-19 Vaccine ( season) 2023 03/28/2021, 08/07/2020, 07/17/2020 Influenza Adult (#1) 2024 02/03/2018, 05/02/2013, 03/15/2012 Hepatitis B Vaccines Completed 08/17/2001, 2000, 2000 Pneumococcal Vaccine: Pediatrics (0 to 5 Years) and At-Risk Patients (6 to 64 Years) Aged Out 02/15/2002, 05/20/2001, 03/19/2001, Additional history exists No longer eligible based on patient's age to complete this topic HPV Vaccines Completed 12/28/2014, 07/2014, 06/22/2014 Meningococcal Vaccine Completed 12/30/2017, 012 Meningococcal B Vaccine Completed 02/03/2018, 12/30 RSV Immunizations Under 20 Months Aged Out No longer eligible based on patient's age to complete this topic Insurance [facility] [employer] Care Teams Digital Marketing Lead Relationship Specialty Start Date End Date Ana Maria Prakash PA-C [address] [phone] PCP - General PHYSICIAN PUBLIC WELFARE DIRECTOR 07/16/21
--- OUTSIDE RECORDS SUMMARY | 2024-07-02 14:37 | XMS_ITS | Clinical Summary ---
Author Organization [facility] Address [address] [place] [address] Care Team Providers Care Tassel Clipper Name Role Phone Unavailable Primary Care Provider Unavailabl e Source Comments [facility] [employer],non-owned Affiliates and Associated Physician Practices is amultiple site organization consisting of ambulatory clinics and hospital sitesin [place], [place], [place] and [place]. This disclosure is being madepursuant to the Care Everywhere program and may not contain all information available regarding this patient. Last updated 18.[facility] [facility] Allergies No known active allergies Medications * Be aware that medications may not be up to date on this document. Alwaysverify current medications with the patient. Medication Sig Dispensed Refills Start Date End Date Status albuterol HFA (PROVENTIL;VENTOLIN;VT OAIR) 108 (90 BASE) MCG/ACT inhaler Inhale 2 Puffs by mouth every 6 hours as needed. Active Budesonide (PULMICORT IN) Inhale 2 Puffs by mouth once daily. Active ibuprofen (MOTRIN) 100 MG chew tablet Take 1 Tab by mouth every 6 hours as needed for Pain. 50 Tab 0 07/19/2011 Active Social History Tobacco Use Types Packs/Day Years Used Date Smoking Tobacco: Never Sex and Gender Information Value Date Recorded Sex Assigned at Not on file Gender Identity Not on file Sexual Orientation Not on file Last Filed Vital Signs Vital Sign Reading Time Taken Comments Blood Pressure 124/70 06/17/2013 1:29 PM RESIDENTIAL TREATMENT SPECIALIST Pulse 114 06/17/2013 1:29 PM RESIDENTIAL TREATMENT SPECIALIST Temperature 36.6 C (97.8 F) 06/17/2013 1:29 PM RESIDENTIAL TREATMENT SPECIALIST Respiratory Rate 20 06/17/2013 1:29 PM RESIDENTIAL TREATMENT SPECIALIST Oxygen Saturation 99% 06/17/2013 1:29 PM RESIDENTIAL TREATMENT SPECIALIST Inhaled Oxygen Concentration - - Weight 44.8 kg (98 lb 12.3 oz) 06/17/2013 1:29 P M RESIDENTIAL TREATMENT SPECIALIST Height 156.8 cm (5' 1.73 ) 06/17/2013 1:29 PM CS T Body Mass Index 18.22 06/17/2013 1:29 PM RESIDENTIAL TREATMENT SPECIALIST Plan of Treatment Health Maintenance Due Date Last Done Comments HIV SCREENING 11/16/2015 HPV VACCINE (1 - Male 3-dose series) 11/16/2015 MENINGOCOCCAL (Group B) VACC INE SHARED DECISION-MAKING (1 of 2 - Standard) 2016 HEPATITIS C SCREENING 11/11/2018 DTAP/TDAP/TD VACCINES (1 - Tdap) 11/16/2019 HEPATITIS B VACCINE (1 of 3 - 19+ 3-dose series) 11/16/2019 COVID-19 VACCINE (1 - 2023-2 5 season) 2023 INFLUENZA VACCINE (#1) 2023 DEPRESSION SCREENING 04/21/2024 ZOSTER VACCINE (1 of 2) 2050 HIB VACCINE Aged Out No longer eligi ble based on patient's age to complete this topic MENINGOCOCCAL GROUPS A/C/Y/W VACCINE Aged Out No longer eligible b ased on patient's age to complete this topic PNEUMOCOCCAL VACCINE Aged Out No long er eligible based on patient's age to complete this topic
--- OUTSIDE RECORDS SUMMARY | 2024-07-02 14:37 | XMS_ITS | Continuity of Care Document ---
Author Name [facility] Organization [facility] Care Team Providers Care [place] Boatman Name Role Phone [facility] Unavailable Unavailable Immunizations Combined list of available immunizations from the Department of Defense and Veterans Affairs facilities. Immunization Series Date Given Administered By Site Reaction Lot Number CVX Code Drug Staff Developer Status Comments Source poliovirus vaccine, inactivated 2019 [id number] [employer] complet ed polioviru s vaccine, inactivat ed 06/16/19 Given Ambulat ory Pharmac y poliovirus vaccine, inactivated 2019 zzLef t Arm [id number] [employer] complet ed polioviru s vaccine, inactivat ed 06/16/19 Given Ambulat ory Pharmac y hepatitis A-hepatitis B vaccine 2019 [id number] GlaxoSmithKli ne complet ed hepatitis A-hepatit is B vaccine 06/14/19 Given Ambulat ory Pharmac y hepatitis A-hepatitis B vaccine 2019 zzRig ht Thigh [id number] GlaxoSmithKli ne complet ed hepatitis A-hepatit is B vaccine 06/14/19 Given Ambulat ory Pharmac y hepatitis A-hepatitis B vaccine 2019 [id number] 104 GlaxoSmithKli ne complet ed hepatitis A-hepatit is B vaccine 05/13/19 Given Ambulat ory Pharmac y influenza, injectable, quadrivalent 2019 [id number] 158 Seqirus complet ed influenza , injectabl e, quadrival ent 05/05/19 Given Ambulat ory Pharmac y tetanus, diphtheria, acellular pertu is 2019 [id number] sanofi pasteur complet ed tetanus, diphtheri a, acellular pertussis 05/05/19 Given Ambulat ory Pharmac y meningococcal A,C,Y,W-135 (MCV4P) 2019 [id number] Novartis Pharm[employer] ls complet ed meningoco ccal A,C,Y,W-1 35 (MCV4P) 05/05/19 Given Ambulat ory Pharmac y pneumococcal polysaccharid e, 23 valent 2019 [id number] Merck [employer] Inc complet ed pneumococ mike polysacch aride, 23 valent 05/05/19 Given Ambulat ory Pharmac y adenovirus vaccine, live 2019 [id number] 143 Unknown complet ed adenoviru s vaccine, live 05/05/19 Given Ambulat ory Pharmac y [facility], [facility]able, [facility] [id number] 158 Seqirus complet ed influenza , injectabl e, quadrival ent 05/05/19 Given Ambulat ory Pharmac y adenovirus vaccine, live 2019 [id number] 143 Unknown complet ed adenoviru s vaccine, live 05/05/19 Given Ambulat ory Pharmac y tetanus, diphtheria, acellular pertu [facility] [id number] sanofi pasteur complet ed tetanus, diphtheri a, acellular pertussis 05/05/19 Given Ambulat ory Pharmac y meningococcal A,C,Y,W-135 (MCV4P) 2019 zzLef t Arm [id number] 114 Novartis Pharm[employer] ls complet ed meningoco ccal A,C,Y,W-1 35 (MCV4P) 05/05/19 Given Ambulat ory Pharmac y tuberculin purified protein derivative 2019 zzLef t Arm [id number] sanofi pasteur complet ed tuberculi n purified protein derivativ e 05/05/19 Given Ambulat ory Pharmac y pneumococcal polysaccharid e, 23 valent 2019 zzLef t Arm [id number] Merck [employer] Inc complet ed pneumococ mike polysacch aride, 23 valent 05/05/19 Given Ambulat ory Pharmac y Procedures Combined list of: 1) Procedures from Department of Veterans Affairs facilities going back up to thelast 18 months, not all VA non-surgical procedures are included; 2) All procedures from the Department of Defense facilities. Procedure Procedure Type Code Date Perfomer Comments Sourc e No data available for this section Ambulatory P harmacy Social History Combined list of available smoking, tobacco, and other social history from Department of Defense and Veterans Affairs facilities. Social History Type Response Date Comment Sourc e Sex Representation Male 01/20/2020 Unknow n Organization Sexual Orientation Ambula tory Pharmacy Gender identity Ambulator y Pharmacy Assessment and Plan Combined list of future care activities from Department of Defense and Veterans Affairs facilities (e.g., assessment and plan notes, appointments, orders, and referrals). Additional future care activities may be listed in the Plan of Care section. Result Assessment and Plan Date Source Assessment and Plan No data available for this section 07/02/2024 Ambulatory Pharmacy Functional Status Combined list of recent functional and cognitive assessments recorded at [facility] and [facility] [place] Functional Firth Measurement (FIM) Scale: 1 = Total Assistance (Subject = 0% +), 2 = Maximal Assistance (Subject = 25% +), 3 = Moderate Assistance (Subject = 50% +), 4 = Minimal Assistance (Subject = 75% +), 5 = Supervision, 6 = Modified Firth (Device), 7 = Complete Firth (Timely, Safely). Assessment Date/Time Source Assessment Type Assessment Skill Assessment Score Assessment Details No data available for this section
--- OUTSIDE RECORDS SUMMARY | 2024-07-02 14:37 | XMS_ITS | Referral Summary ---
Author Organization [facility] Address [address] [place] [address] Care Team Providers Care Proofsheet Corrector Name Role Phone Unavailable Primary Care Provider Unavailabl e Source Comments [facility] Shot [employer],non-owned Affiliates and Associated Physician Practices is amultiple site organization consisting of ambulatory clinics and hospital sitesin [place], [place] and [place]. This disclosure is being madepursuant to the Care Everywhere program and may not contain all information available regarding this patient. Last updated 18.[facility] Allergies No known active allergies Medications * Be aware that medications may not be up to date on this document. Alwaysverify current medications with the patient. Medication Sig Dispensed Refills Start Date End Date Status albuterol HFA (PROVENTIL;VENTOLIN;NC OAIR) 108 (90 BASE) MCG/ACT inhaler Inhale [...] Comments Blood Pressure 124/70 06/17/2013 1:29 PM [employer] Pulse 114 06/17/2013 1:29 PM [employer] Temperature 36.6 C (97.8 F) 06/17/2013 1:29 PM [employer] Respiratory Rate 20 06/17/2013 1:29 PM [employer] Oxygen Saturation 99% 06/17/2013 1:29 PM [employer] Inhaled Oxygen Concentration - - Weight 44.8 kg (98 lb 12.3 oz) 06/17/2013 1:29 P M [employer] Height 156.8 cm (5' 1.73 ) 06/17/2013 1:29 PM CS T Body Mass Index 18.22 06/17/2013 1:29 PM [employer] Plan [place] [address]
== END 2024-07-02 14:29 | disposition home or self-care (01) ==
PROVIDERS: PCP Physician Assistant; Visit Provider Physician Assistant
DX: R07.89 Other chest pain (principal)
CPT/HCPCS: 71046; 93005; 93306